=== PATIENT | female | born 1950 | race Caucasian/White ===

== ENCOUNTER → 2016-11-10 | Outpatient (CLI) | payer MEDICARE ==
--- NOTE | 2016-11-14 07:12 | MM ---
Reason for exam: screening (asymptomatic). Last mammogram was performed 7 months ago. History: Patient is postmenopausal. Physical Findings: A clinical breast exam by your physician is recommended on an annual basis and results should be correlated with mammographic findings. MG 3D Screening Mammo W/Cad Bilateral CC and MLO view(s) were taken. Prior study comparison: September 24, 2015, bilateral MG 3d screening mammo w/cad. July 25, 2013, bilateral digital screening mammo w/CAD. There are scattered fibroglandular densities. There is chronic nodularity in the right breast. No significant changes when compared with prior studies. ASSESSMENT: Negative, BI-RAD 1 RECOMMENDATION: Routine screening mammogram of both breasts in 1 year.
== END | disposition home or self-care (01) ==
LOC: RADMAMWWP 11:18
PROVIDERS: ATTEND Family Medicine
DX: Z12.31 Encounter for screening mammogram for malignant neoplasm of breast (principal)
CPT/HCPCS: 77063; G0202

== ENCOUNTER → 2017-10-09 | Outpatient (CLI) | payer MEDICARE ==
[2017-10-09 10:23] LABS: MCH 30.1 pg (25.0-35.0); MCHC 32.5 g/dL (31.0-37.0); MCV 92.5 fL (80.0-100.0); Mean Platelet Volume 7.9; Platelet Count 255 k/uL (150-450); RBC 4.65 m/uL (3.80-5.40); RDW 12.5 % (11.5-15.5); WBC 8.9 k/uL (3.8-10.6)
[2017-10-09 11:12] LABS: Albumin 4.1 g/dL (3.5-5.0); Calcium 9.7 mg/dL (8.4-10.2); Potassium 4.9 mmol/L (3.5-5.1); Total Bilirubin 0.5 mg/dL (0.2-1.3); Total Protein 7.4 g/dL (6.3-8.2)
== END | disposition home or self-care (01) ==
LOC: LABWHC1 09:51
PROVIDERS: ATTEND Physician Assistant
DX: L40.0 Psoriasis vulgaris (principal)
CPT/HCPCS: 36415; 80053; 85027

== ENCOUNTER → 2017-10-25 | Outpatient (CLI) | payer MEDICARE ==
[2017-10-25 10:02] LABS: HCT 45.1 % (34.0-46.0); HGB 14.4 gm/dL (11.4-16.0); MCH 29.5 pg (25.0-35.0); MCHC 32.1 g/dL (31.0-37.0); Mean Platelet Volume 8.1; Platelet Count 232 k/uL (150-450); RDW 12.6 % (11.5-15.5); WBC 8.4 k/uL (3.8-10.6)
[2017-10-25 10:19] LABS: Albumin 4.5 g/dL (3.5-5.0); Potassium 4.2 mmol/L (3.5-5.1); Total Bilirubin 0.7 mg/dL (0.2-1.3); Total Protein 7.6 g/dL (6.3-8.2)
== END | disposition home or self-care (01) ==
LOC: LABWHC1 09:31
PROVIDERS: ATTEND Physician Assistant
DX: L40.0 Psoriasis vulgaris (principal)
CPT/HCPCS: 36415; 80053; 85027

== ENCOUNTER → 2018-05-29 | Outpatient (CLI) | payer MEDICARE ==
--- NOTE | 2018-05-29 09:03 | CT ---
EXAMINATION TYPE: CT shoulder RT wo con DATE OF EXAM: 05/29/2018 COMPARISON: Radiograph 04/26/2017 HISTORY: 67-year-old female with right shoulder pain, Pre op planning TECHNIQUE: Contiguous axial scanning of the right shoulder without IV contrast. Coronal and sagittal reconstructions performed. 3-D reconstructions generated on a dedicated independent workstation. CT DLP: 235.8 mGycm Automated exposure control for dose reduction was used. FINDINGS: There is severe degenerative change of the right shoulder with complete loss of cartilage and joint s pace and [id number] articulation. Subchondral sclerosis. Subchondral geode measuring 7 mm in the in ferior glenoid. Prominent marginal spurring is present. There is mild loss of overall glenoid bone st ock secondary to bony remodeling with slight posterior joint subluxation and 15 degrees of glenoid re troversion. Moderate joint effusion especially with fluid extending into the subcoracoid recess. Overall rotator cuff muscle bulk is maintained. Bony irregularity at the greater tuberosity with sugg estion of some mild thinning of anterior supraspinatus tendon fibers. This could represent fraying or partial bursal sided tear. Moderate degenerative joint space narrowing with capsular hypertrophy and prominent marginal spurring at the acromioclavicular joint. The hypertrophic changes mildly impress on the underlying cuff. No acute fracture or dislocation. IMPRESSION: 1. END-STAGE RIGHT SHOULDER WITH SLIGHT POSTERIOR JOINT SUBLUXATION, MILD LOSS OF OVERALL GLENOID BON E STOCK SECONDARY TO SOME BONY REMODELING, AND 15 DEGREES OF GLENOID RETROVERSION. 2. PRESERVED ROTATOR CUFF MUSCLE VOLUME. THERE IS SOME THINNING OF THE ANTERIOR SUPRASPINATUS TENDON FIBERS THAT COULD REFLECT A PARTIAL BURSAL SIDED TEAR. 3. MODERATE JOINT EFFUSION, LIKELY REACTIVE. 4. MODERATE AC JOINT OA WITH MILD IMPINGEMENT ON THE UNDERLYING CUFF.
== END | disposition home or self-care (01) ==
LOC: RADCTMAIN 07:55
PROVIDERS: ATTEND Orthopaedic Surgery Sports Medicine
DX: Z01.818 Encounter for other preprocedural examination (principal); M19.011 Primary osteoarthritis, right shoulder; S43.001A Unspecified subluxation of right shoulder joint, initial encounter

== ENCOUNTER → 2018-06-03 | Outpatient (CLI) | payer MEDICARE ==
--- NOTE | 2018-06-03 12:36 | US ---
EXAMINATION TYPE: US carotid duplex BILAT DATE OF EXAM: 06/03/2018 COMPARISON: NONE CLINICAL HISTORY: I65.22. EXAM MEASUREMENTS: RIGHT: Peak Systolic Velocity (PSV) cm/sec ----- Right CCA: 78.4 ----- Right ICA: 72.7 ----- Right ECA: 78.3 ICA/CCA ratio: 0.9 RIGHT: End Diastole cm/sec ----- Right CCA: 24.5 ----- Right ICA: 30.2 ----- Right ECA: 16.4 LEFT: Peak Systolic Velocity (PSV) cm/sec ----- Left CCA: 79.9 ----- Left ICA: 68.3 ----- Left ECA: 82.2 ICA/CCA ratio: 0.9 LEFT: End Diastole cm/sec ----- Left CCA: 31.1 ----- Left ICA: 26.2 ----- Left ECA: 20.2 VERTEBRALS (direction of flow): Right Vertebral: Antegrade Left Vertebral: Antegrade Rhythm: Normal Mild plaque, no significant velocity elevations. IMPRESSION: Mild degree of grayscale atheromatous plaquing with no sonographically evident hemodynam ically significant stenosis within either visualized carotid arterial system. Criteria for Assigning % of Stenosis / Diameter reduction (Estimation based on the indirect measurements of the internal carotid artery velocities (ICA PSV). 1. Normal (no stenosis)=ICA PSV < 125 cm/s: ratio < 2.0: ICA EDV<40 cm/s. 2. Less than 50% stenosis=ICA PSV < 125 cm/s: ratio < 2.0: ICA EDV<40 cm/s. 3. 50 to 69% stenosis=ICA PSV of 125 to 230 cm/s: ration 2.0 ? 4.0: ICA EDV 40-100 cm/s. 4. Greater than 70% stenosis to near occlusion= ICA PSV > 230 cm/s: ratio > 4.0: ICA EDV > 100 cm/s. 5. Near occlusion= ICA PSV velocities may be low or undetectable: variable ratio and ICA EDV. 6. Total occlusion=unable to detect flow.
--- NOTE | 2018-06-03 13:02 | ECHOF ---
Referral Reason:R01.; I65.22 MEASUREMENTS -------- HEIGHT: 152.4 cm WEIGHT: 61.2 kg BP: IVSd: 0.6 cm (0.6 - 1.1) LVIDd: 3.8 cm (3.9 - 5.3) LVPWd: 1.0 cm (0.6 - 1.1) IVSs: 1.2 cm LVIDs: 2.7 cm LVPWs: 1.0 cm LA Diam: 2.6 cm (2.7 - 3.8) LAESV Index (A-L): 17.28 ml/m Ao Diam: 2.4 cm (2.0 - 3.7) AV Cusp: 1.5 cm (1.5 - 2.6) LA Diam: 3.9 cm (2.7 - 3.8) MV EXCURSION: 22.213 mm (> 18.000) MV EF SLOPE: 128 mm/s (70 - 150) EPSS: 0.4 cm MV E Bear: 0.38 m/s MV DecT: 374 ms MV A Bear: 0.79 m/s MV E/A Ratio: 0.49 RAP: 5.00 mmHg RVSP: 27.97 mmHg FINDINGS -------- Sinus rhythm. This was a technically good study. LV size, wall thickness and systolic function are normal, with an EF greater than 55%. The left sabrina tricular size is normal. The right ventricle is normal in size. The left atrial size is normal. Normal LA size by volume 22+/-6 ml/m2. The right atrial size is normal. The aortic valve is trileaflet, and appears structurally normal. No aortic stenosis or regurgitation. The mitral valve is normal. Mild mitral regurgitation is present. Mild tricuspid regurgitation present. There is no evidence of pulmonary hypertension. The right v entricular systolic pressure, as measured by Doppler, is 27.97mmHg. The pulmonic valve was not well visualized. There is no pulmonic regurgitation present. The aortic root size is normal. There is no pericardial effusion. CONCLUSIONS -------- 1. Sinus rhythm. 2. This was a technically good study. 3. LV size, wall thickness and systolic function are normal, with an EF greater than 55%. 4. The left ventricular size is normal. 5. The left atrial size is normal. 6. The aortic valve is trileaflet, and appears structurally normal. No aortic stenosis or regurgitati on. 7. Mild mitral regurgitation is present. 8. Mild tricuspid regurgitation present. 9. There is no evidence of pulmonary hypertension. 10. The pulmonic valve was not well visualized. 11. There is no pulmonic regurgitation present. 12. The aortic root size is normal. 13. There is no pericardial effusion. FASHION ARTIST: Gaby Vora RDCS
== END | disposition home or self-care (01) ==
LOC: RADECHMAIN 11:11
PROVIDERS: ATTEND Family Medicine
DX: I08.1 Rheumatic disorders of both mitral and tricuspid valves (principal); I65.22 Occlusion and stenosis of left carotid artery
CPT/HCPCS: 93306; 93880

== ENCOUNTER → 2018-06-14 | Outpatient (CLI) | payer MEDICARE ==
[2018-06-14 11:09] LABS: HGB 14.6 gm/dL (11.4-16.0); MCHC 32.5 g/dL (31.0-37.0); MCV 98.5 fL (80.0-100.0); Mean Platelet Volume 7.1; Platelet Count 272 k/uL (150-450); RBC 4.57 m/uL (3.80-5.40); RDW 14.6 % (11.5-15.5); WBC 5.8 k/uL (3.8-10.6)
[2018-06-14 16:57] LABS: Albumin 4.4 g/dL (3.80-4.90); Albumin/Globulin Ratio 1.83 (1.20-2.10); Anion Gap 7.8 mmol/L (4.00-12.00); Calcium 9.6 mg/dL (8.7-10.3); Carbon Dioxide 27.2 mmol/L (21.6-31.8); Globulin 2.4 g/dL (2.1-3.7); Potassium 4.4 mmol/L (3.5-5.5); Total Bilirubin 0.3 mg/dL (0.2-1.2); Total Protein 6.8 g/dL (6.2-8.2)
== END | disposition home or self-care (01) ==
LOC: LABWHC1 10:14
PROVIDERS: ATTEND Physician Assistant
DX: L40.0 Psoriasis vulgaris (principal)
CPT/HCPCS: 36415; 80053; 85027

== ENCOUNTER → 2018-06-14 | Outpatient (CLI) | payer MEDICARE ==
[2018-06-14 11:01] LABS: Appearance,Urine Clear (Clear); Bilirubin,Urine Negative (Negative); Blood,Urine Negative (Negative); Color,Urine Light Yellow; Glucose,Urine (UA) Negative (Negative); Ketones,Urine Negative (Negative); Leukocyte Esterase,Urine Negative (Negative); Nitrite,Urine Negative (Negative); Protein,Urine Negative (Negative); Specific Gravity,Urine 1.003 (1.001-1.035); Urobilinogen,Urine <2.0 mg/dL (<2.0)
[2018-06-14 11:08] LABS: Partial Thromboplastin Time 25.8 sec (22.0-30.0); Prothrombin Time 10.4 sec (9.0-12.0)
== END ==
LOC: LABPAT 10:10
PROVIDERS: ATTEND Orthopaedic Surgery Sports Medicine
DX: Z01.818 Encounter for other preprocedural examination (principal); Z01.812 Encounter for preprocedural laboratory examination; Z51.81 Encounter for therapeutic drug level monitoring; Z79.01 Long term (current) use of anticoagulants
CPT/HCPCS: 36415; 80053; 81003; 85027; 85610; 85730; 87070; 93005

== ENCOUNTER 2018-06-27 13:30 | Inpatient (IN) | payer MEDICARE ==
[2018-06-19 15:37] VITALS: BMI 26.4
[~2018-06-27 13:30] MED LIST: DEXAMETHASONE SOD PHOSPHATE 10 MG/ML 1 ML VIAL IV ONE; HYDROmorphone 0.5 MG/0.5 ML SYRINGE IVP PRN; LIDOCAINE 1% 20 ML VIAL (10MG/ML) FOR IV START INTRADERMA PRN; ONDANSETRON 4 MG/2 ML VIAL IVP ONE; SCOPOLAMINE 1.5MG/72HR PATCH TRANSDERM ONE
[2018-06-27] MEDS ORDERED: ACETAMINOPHEN TAB 500 MG TAB PO ONE (13:55)
[2018-06-27] MEDS ORDERED: LACTATED RINGERS 1,000 ML IV ONE ×2 (14:00→16:38)
[2018-06-27] MEDS ORDERED: TRANEXAMIC ACID 1,000 MG in SODIUM CHLORIDE 0.9% 50 ML IVPB STA ×4 (14:32)
[2018-06-27] MEDS ORDERED: ACETAMINOPHEN TAB 500 MG TAB PO STA (14:33)
[2018-06-27] MEDS ORDERED: ceFAZolin IN SWFI 2 GM/20 ML SYRINGE IVP STA (14:33)
[2018-06-27] MEDS ORDERED: MELOXICAM 7.5 MG TAB PO STA (14:33)
[2018-06-27] MEDS ORDERED: ONDANSETRON 4 MG/2 ML VIAL IVP STA (14:33)
[2018-06-27] MEDS ORDERED: MIDAZOLAM 2 MG/2 ML VIAL IVP ONE (14:38)
[2018-06-27] MEDS ORDERED: fentaNYL (PF) 50 MCG/ML 2 ML AMP IVP ONE (14:39)
[2018-06-27] MEDS ORDERED: PHENYLEPHRINE-0.9% NACL SYG 1 MG/10 ML SYRINGE ONE (15:29)
[2018-06-27] MEDS ORDERED: ePHEDrine SULFATE/0.9% NACL/PF 50 MG/5 ML SYRINGE IV ONE (15:29)
[2018-06-27] MEDS ORDERED: ROCURONIUM BROMIDE 10 MG/ML 10 ML VIAL IV ONE (15:29)
[2018-06-27] MEDS ORDERED: MIDAZOLAM 2 MG/2 ML VIAL ONE (15:29)
[2018-06-27] MEDS ORDERED: SUCCINYLCHOLINE CHLORIDE 100 MG/5 ML SYR IV ONE (15:29)
[2018-06-27] MEDS ORDERED: fentaNYL (PF) 50 MCG/ML 2 ML AMP ONE (15:29)
[2018-06-27] MEDS ORDERED: LIDOCAINE 1% INJ 10MG/ML (20 ML MDV) ONE (15:29)
[2018-06-27] MEDS ORDERED: SODIUM CHLORIDE 0.9% 100 ML BAG ONE (15:29)
[2018-06-27] MEDS ORDERED: TRANEXAMIC ACID 1,000 MG/10 ML VIAL ONE (15:29)
[2018-06-27] MEDS ORDERED: ROPIVACAINE 5 MG/ML 30 ML VIAL ONE (15:29)
[2018-06-27] MEDS ORDERED: PROPOFOL 10 MG/ML 20 ML VIAL IV ONE (15:29)
[2018-06-27] MEDS ORDERED: diphenhydrAMINE 25 MG CAP PO PRN (15:33)
[2018-06-27] MEDS ORDERED: hydrOXYzine PAMOATE 25 MG CAP PO PRN (15:33)
[2018-06-27] MEDS ORDERED: ONDANSETRON 4 MG/2 ML VIAL IVP PRN (15:33)
[2018-06-27] MEDS ORDERED: TEMAZEPAM 15 MG CAP PO PRN (15:33)
[2018-06-27] MEDS ORDERED: METOCLOPRAMIDE 5 MG/ML 2 ML VIAL IVP PRN (15:33)
[2018-06-27] MEDS ORDERED: PROCHLORPERAZINE SUPPOSITORY 25 MG SUPP RECTAL PRN (15:33)
[2018-06-27] MEDS ORDERED: HYDROmorphone 0.5 MG/0.5 ML SYRINGE IVP PRN ×3 (15:33)
[2018-06-27] MEDS ORDERED: SENNOSIDES-DOCUSATE SODIUM 1 EACH TAB PO PRN (15:33)
[2018-06-27] MEDS ORDERED: HYDROcodone/APAP 7.5-325MG 1 EACH TAB PO PRN (15:37)
[2018-06-27] MEDS ORDERED: HYDROcodone/APAP 10-325MG 1 EACH TAB PO PRN ×2 (15:37)
[2018-06-27] MEDS ORDERED: ceFAZolin 3,000 MG in SODIUM CHLORIDE 0.9% IRRIGATIO 3,000 ML IRRIGATION ONE (16:08)
[2018-06-27] MEDS ORDERED: VANCOMYCIN 1,000 MG VIAL MISCELLANE ONE (16:24)
--- NOTE | 2018-06-27 18:14 | P.ONQ ---
Anesthesiology Proc Note - PNB - Peripheral Nerve Block Performed Right Interscalene Single Time Out Performed: Yes Procedure Start Time: 14:35 Indication: Acute Post-Operative Pain, Analgesia Specifically requested for management of pain by DrKimberly: Mike Wilson Sedation Type: Sedate with meaningful contact maintained Preparation: Sterile Prep Position: Supine Catheter: None Needle Types: Other (see comment) (Pajunk) Needle Size: 50mm (2") Needle Gauge: 21 Technique: Ultrasound Injectate: 0.5% Ropivacaine (see comment for volume) (25cc) Blood Aspirated: No Pain Paresthesia on Injection Noted: No Resistance on Injection: Normal Events: Uneventful and Well Tolerated
--- NOTE | 2018-06-27 18:23 | OP ---
OPERATIVE REPORT DATE OF PROCEDURE: 06/27/2018 PREOPERATIVE DIAGNOSIS: Right shoulder osteoarthritis. POSTOPERATIVE DIAGNOSIS: Right shoulder osteoarthritis. OPERATION: 1. Right total shoulder arthroplasty. 2. Right long-head biceps tenodesis. SURGEON: Mike Wilson MD. ROOFING SUBCONTRACTOR: Ranjan Delaney PA-C. ANESTHESIA: General endotracheal. ESTIMATED BLOOD LOSS: 200 mL. DRAINS: One deep drain. COMPLICATIONS: None apparent. DISPOSITION: Post-Anesthesia Care Unit. INDICATIONS: Ms. Sanabria is a very pleasant 67-year-old female with longstanding right shoulder pain. Workup including x-rays revealed advanced osteoarthrosis of the right shoulder. At this point she feels as if she has failed conservative management and would like to proceed with operative intervention. The risks of the procedure were discussed with her in detail. These risks include but are not limited to risk of infection, nerve damage, bleeding, pain, instability in the shoulder, loosening of the implants, and a risk of deep infection. There is also a small risk of deep vein thrombosis which could lead to fatal pulmonary embolism. The patient understood the risks. All of her questions with regard to the risks of the procedure were answered to her satisfaction. Appropriate informed consent was obtained. DESCRIPTION OF THE PROCEDURE: The patient was identified in the preoperative holding area. Surgical site was marked by both the patient and myself. She was given 2 grams of Ancef IV for prophylactic purposes. She was then transferred to the operative suite. She was placed supine on the operating room table. General anesthetic was then administered and dosed per the anesthesia department without apparent complication. Examination under anesthesia of the right shoulder was then performed. She had passive elevation to 140 degrees. External rotation at the side was to 30 degrees. The patient was then placed into the beach chair position, well padded in preparation for surgery. Great care was taken to ensure that her cervical spine was in neutral alignment, well padded and maintained that way throughout the operative procedure. Great care was also taken to appropriately pad her legs as well. The patient's right upper extremity was then prepped and draped in the usual sterile fashion. Standard surgical pause was then undertaken to ensure that we were operating on the correct site and that appropriate preoperative antibiotics had been given. All staff in the room were in agreement and we proceeded. The acromion AC joint, clavicle and coracoid were marked with a surgical pen. A planned incision starting at the level of the clavicle and extending distally over the deltopectoral interval approximately 1 cm lateral to the coracoid was marked with a surgical pen. The incision was then made with a 10 blade scalpel. Dissection was carried down sharply to the deltoid fascia. The deltopectoral interval was then identified at the level of the clavicle. A small band retractor was then placed onto the proximal deltoid. I then released the deltoid fascia on the lateral aspect of the cephalic vein. The vein was left in its bed medially. The cephalic vein was protected throughout the entire case. I then identified the clavipectoral fascia. It was incised proximally at the level of the coracoacromial ligament. The coracoacromial ligament was left intact. I then used my finger to spread the interval between the conjoint tendon and the subscapularis. I felt for the axillary nerve, which was readily palpable. I then cleared the subacromial and subdeltoid spaces of bursal and scar tissue. I then utilized a Funez retractor to hold the deltoid and expose the humeral head. I then proceeded with release of the subscapularis in the anterior inferior shoulder capsule. The rotator cuff was inspected. It was found to be intact. The rotator interval was also identified. The course of the biceps tendon was also identified. I then released the biceps in the bicipital groove. I tenodesed the biceps to the surrounding soft tissue with multiple 0 Vicryl interrupted sutures. I then released the rotator interval. It was released at the base of the coracoid and then out laterally. The subscapularis and the capsule were then released intratendinously. Subscapularis and the capsule release extended distally in a lazy-S fashion approximately 1 cm medial to the biceps tendon. I then continued to release this capsule along the inferior neck in a vertical fashion to approximately the 6 o'clock position. Great care was taken to ensure that the capsule was always visualized as it was released as to avoid injuring the axillary nerve. I then brought a Cortes woodworking belt sander with the arm externally rotated and abducted. I continued to release the capsule inferomedially to the 4 o'clock position. The inferior osteophytes were now removed as well. This was done with a rongeur. I then proceeded with preparation of the humerus. I removed all the goat's yeager osteophytes. I then removed the subchondral plate from the superior aspect of the humeral head utilizing a large rongeur. I then utilized a starter reamer to gain access to the humeral canal. This was approximately 1 cm medial to the rotator cuff insertion and 1 cm posterior to the bicipital groove. I then prepared the humeral canal with hand reaming. I started with a 6 mm reamer and progressed incrementally until firm resistance was encountered at 12 mm. The reamer handle was then left in place. I then utilized a humeral resection guide set at 30 degrees of retrotorsion. The cutting block was set 1 to 2 mm above the insertion of the rotator cuff. I then proceeded to osteotomize the humeral head with an oscillating saw. I removed the resection guide and then completed the osteotomy. I then proceeded with trial stem placement. I then broached the canal starting with a 6 mm broach up to a 12 mm broach. The 12 mm trial stem was then left in place. I then proceeded with trial reduction. I started with a 38 x 19 x 39 head. This fit very nicely. The head fit opposite the glenoid. The rotator cuff was not tented. Internal rotation was to 90 degrees. Elevation was to 150 degrees and translation was one half of the head in neutral rotation and inferiorly one quarter of the head in 15 to 20 degrees of abduction. I then removed the trial head. The stem was left in place to protect the proximal humerus. I then proceeded with exposure of the glenoid. A bone hook was then used to pull the humerus out laterally. I inspected the joint for any loose bodies. The condition of the cuff was again inspected. It was in excellent condition. The Bhattman retractor was then placed onto the posterior glenoid rim. The arm was placed in approximately 80 degrees of abduction and in slight flexion on the Cortes stand. I then proceeded to remove the hypertrophic labrum to definitively identify the actual glenoid. I then selected the size of the glenoid. A medium-sized glenoid seemed to fit very nicely. I then utilized a starting drilled to make the centering hole. I then proceeded to ream the glenoid fossa. This was done with a medium-sized reamer. The reaming was then taken down to paprika signs. I took great care to do a minimal amount of reaming to maintain as much subchondral bone as possible. There was a tiny bit of posterior inferior loss, and I preferentially took slightly more anterior glenoid with the reaming. I then proceeded to place the glenoid drill holes. The peripheral drill holes were then placed and the center hole was also drilled as well. I then placed a trial size medium glenoid and it fit very nicely onto the glenoid. I then proceeded with cementing. I Waterpik'd the wound and the bone. The drill holes were packed with Ray-Renee sponges. The cement was mixed on the back table by the library clerical assistant. The drill holes were then packed with cement utilizing a 20 mL syringe. These were packed very tightly. A small amount of cement was also placed on the posterior aspect of the real glenoid component. I then impacted the real glenoid component into place. It was a Biomet medium-sized pegged glenoid component with a Regenerex central peg. Excess cement was then removed utilizing a freer elevator. Pressure was held onto the glenoid component until the cement had hardened. I then removed the Bhattman retractor. I then proceeded with humeral component trial reduction with the glenoid. The 38 x 19 x 39 head was then placed back onto the stem. Again it was taken through a trial. The head set opposite the glenoid. The rotator cuff was not tented. Elevation was to 150 degrees. Internal rotation was to 90 degrees and translation was one half of the head in neutral rotation, one quarter of the head in 15 to 20 degrees of abduction. I then had the indirect sales representative open a 38 x 19 x 39 real head and a size 12 Biomet mini stem. The stem was then impacted into the canal in 30 degrees of retrotorsion. The real head was then impacted onto the stem. The shoulder was reduced. I then proceeded with closure. Again the wound was thoroughly irrigated with sterile saline solution with antibiotic added. The rotator interval was closed tightly with interrupted 0 Vicryl sutures. The subscapularis was repaired with #2 interrupted FiberWire sutures. The axillary nerve was felt for and readily palpable. The tug-test was normal. Deep drain was then placed and brought out superiorly away from the incision. Five hundred mg of vancomycin powder was then placed deep into the wound. The deltopectoral interval was then closed with 0 Vicryl interrupted sutures. Again the wound was thoroughly irrigated with sterile saline solution with antibiotic added. The remaining 500 mg of vancomycin powder was placed subcutaneously. The subcutaneous tissue was closed with 2-0 Vicryl interrupted suture and the skin was closed with a running 3-0 Quill suture. Dermabond was applied to the incision. Sterile compressive dressing was applied. The patient's right upper extremity was placed into a shoulder immobilizer. All sponge and needle counts were deemed correct prior to closure. The patient tolerated the procedure without apparent complication. She was transferred to the recovery room in stable condition. MMMALLORY / REBECCAN: [id number] /
[2018-06-27] MEDS ORDERED: ONDANSETRON 4 MG/2 ML VIAL IVP ONE (18:25)
--- NOTE | 2018-06-27 18:36 | XR ---
EXAMINATION TYPE: XR shoulder limited RT DATE OF EXAM: 06/27/2018 COMPARISON: 04/26/2017 HISTORY: Postop TECHNIQUE: Single view FINDINGS: There is a right shoulder prosthesis. Components appear in anatomic position. IMPRESSION: No complicating process seen.
[2018-06-27] MEDS ORDERED: PROMETHAZINE INJ 25 MG/ML 1 ML VIAL IVPB ONE (18:50)
[2018-06-27 19:54] LABS: Basophils % (A) 0 %; Eosinophils % (A) 0 %; HCT 39.3 % (34.0-46.0); HGB 12.9 gm/dL (11.4-16.0); Lymphocytes % (A) 10 %; MCH 32.1 pg (25.0-35.0); MCHC 32.9 g/dL (31.0-37.0); MCV 97.4 fL (80.0-100.0); Mean Platelet Volume 8.2; Monocytes # (A) 0.2 k/uL (0-1.0); Monocytes % (A) 2 %; Neutrophils # (A) 9.3 k/uL (1.3-7.7); Neutrophils % (A) 88 %; Platelet Count 191 k/uL (150-450); RBC 4.04 m/uL (3.80-5.40); RDW 14.3 % (11.5-15.5); WBC 10.6 k/uL (3.8-10.6)
--- NOTE | 2018-06-27 20:18 | P.HPIM ---
History of Present Illness H&P Date: 06/27/18 Chief Complaint: Additional management and evaluation 67-year-old female with history of the severe degree of degenerative joint disease osteoarthritis patient is status post to the cortical right shoulder arthroplasty postop day #0 does came back from OR recovering from anesthesia complain of mild nausea however denies any pain in the shoulder her past medical history is significant for hypertension and depression Review of Systems All systems: negative Past Medical History Past Medical History: Hypertension, Osteoarthritis (OA), Skin Disorder Additional Past Medical History / Comment(s): Plaque psoriasis. History of Any Multi-Drug Resistant Organisms: None Reported Past Surgical History: Tubal Ligation Additional Past Surgical History / Comment(s): Colonoscopy. Past Anesthesia/Blood Transfusion Reactions: Postoperative Nausea & Vomiting ( PONV) Past Psychological History: No Psychological Hx Reported Smoking Status: Former smoker Past Alcohol Use History: Occasional Additional Past Alcohol Use History / Comment(s): Quit 20 yrs ago, smoked for 20 yrs, 1 PPD. Past Drug Use History: None Reported - Past Family History Father Family Medical History: Cancer Medications and Allergies Home Medications Medication Instructions Recorded Confirmed Type Amitriptyline HCl [Elavil] 50 mg PO HS 06/19/18 06/27/18 History Lisinopril 40 mg PO QAM 06/19/18 06/27/18 History Doxycycline Hyclate 100 mg PO BID #10 tab 06/27/18 Rx Allergies Allergy/AdvReac Type Severity Reaction Status Date / Time tramadol Allergy Itching Verified 06/27/18 18:23 Physical Exam Vitals: Vital Signs Temp Pulse Pulse Resp BP Pulse Ox 06/27/18 18:40 60 18 130/78 97 06/27/18 18:25 80 18 130/85 95 06/27/18 18:10 50 L 18 130/84 96 06/27/18 17:55 96.8 F L 77 16 132/67 97 06/27/18 14:08 98.5 F 86 16 134/78 98 Intake and Output 06/27/18 06/27/18 06/27/18 06:59 14:59 22:59 Intake Total 500 801 Output Total 200 Balance 500 601 Intake: IV 500 801 Output: Estimated Blood Loss 200 - Constitutional General appearance: average body habitus, cooperative, no acute distress - EENT Eyes: EOMI, PERRLA, normal appearance ENT: normal oropharynx Ears: bilateral: normal - Neck Neck: normal ROM Carotids: bilateral: upstroke normal Thyroid: bilateral: normal size - Respiratory Respiratory: bilateral: CTA - Cardiovascular Rhythm: regular Heart sounds: normal: S1, S2 - Gastrointestinal General gastrointestinal: normal bowel sounds, soft - Integumentary Right shoulder covered with dressing with a drain - Neurologic Neurologic: CNII-XII intact - Musculoskeletal Musculoskeletal: gait normal, generalized weakness, strength equal bilaterally - Psychiatric Psychiatric: A&O x's 3, appropriate affect, intact judgment & insight Results CBC & Chem 7: 06/27/18 19:14 Labs: Abnormal Lab Results - Last 24 Hours (Table) 06/27/18 Range/Units 19:14 Neutrophils # 9.3 H (1.3-7.7) k/uL Thrombosis Risk Factor Assmnt - Choose All That Apply Each Factor Represents 1 point: Obesity (BMI >25) Other Risk Factors: Yes Each Risk Factor Represents 2 Points: Age 61-74 years, Arthroscopic surgery Other congenital or acquired thrombophilia - If yes, enter type in comment: No Thrombosis Risk Factor Assessment Total Risk Factor Score: 5 Thrombosis Risk Factor Assessment Level: High Risk Assessment and Plan Assessment: Painful frozen right shoulder is status post total right shoulder arthroplasty postop day #0 Hypertension Depression Plan: Gentle rehydration Pain management DVT prophylaxis with early ambulation Occult therapy and rehab Resume home medications Deep breathing exercises incentive spirometry If nausea is persistent consider starting antibiotics like Zofran Further recommendations pending plan of care as per clinical response of the patient
[2018-06-27] MEDS ORDERED: AMITRIPTYLINE HCL 50 MG TAB PO SCH (21:00)
[2018-06-27] MEDS: DOXYCYCLINE 100 MG CAP PO SCH (22:01)
[2018-06-27] MEDS: LACTATED RINGERS 1,000 ML IV SCH ×2 (22:16→22:18)
[2018-06-28] MEDS: ceFAZolin IN SWFI 2 GM/20 ML SYRINGE IVP SCH ×2 (00:23→09:03)
[2018-06-28] MEDS: LACTATED RINGERS 1,000 ML IV SCH ×3 (00:27→08:49)
[2018-06-28] MEDS: HYDROcodone/APAP 7.5-325MG 1 EACH TAB PO PRN ×2 (03:33→09:01)
[2018-06-28 07:17] VITALS: RESP 17; TEMP 98.7
--- NOTE | 2018-06-28 08:54 | P.DS ---
Providers Date of admission: 06/27/18 13:30 Expected date of discharge: 06/28/18 Attending physician: Mike Wilson Consults: 06/27/18 15:33 Consult Physician Routine Consulting Provider: Vineet Cheng Consult Reason/Comments: post op medical management Do you want consulting provider notified?: Yes Primary care physician: Deb Ferro - Discharge Diagnosis(es) (1) Osteoarthritis of right shoulder Patient was admitted to the OR on 06/27/2018 to undergo a right total shoulder arthroplasty. She had failed conservative measures as an outpatient and desired to proceed with elective surgery after given informed consent. She underwent the above procedure which she tolerated well without complication. Postoperative hospital course has remained without complication. On day of discharge she is afebrile, vital signs stable, labs within acceptable ranges, tolerating by mouth meds and diet, voiding without difficulty, positive flatus, denies abdominal pain or calf pain, pain is controlled on oral pain medication and has no new complaints. Wound is benign, neurovascular status is intact, calf is soft and nontender, abdomen soft and nontender. Review of systems is negative for numbness, tingling, fever, chills, chest pain, shortness breath, nausea, vomiting, dizziness, headaches, slurred speech or other. Current Visit: Yes Status: Acute Priority: Medium Procedures: Right TSA Patient Condition at Discharge: Good Plan - Discharge Summary Discharge Rx Participant: Yes New Discharge Prescriptions: New Doxycycline Hyclate 100 mg PO BID #10 tab HYDROcodone/APAP 7.5-325MG [Mcgrann 7.5-325] 1 - 2 each PO Q6HR PRN #56 tab PRN Reason: Pain No Action Lisinopril 40 mg PO QAM Amitriptyline HCl [Elavil] 50 mg PO HS Discharge Medication List Amitriptyline HCl [Elavil] 50 mg PO HS 06/19/18 [History] Lisinopril 40 mg PO QAM 06/19/18 [History] Doxycycline Hyclate 100 mg PO BID #10 tab 06/27/18 [Rx] HYDROcodone/APAP 7.5-325MG [Mcgrann 7.5-325] 1 - 2 each PO Q6HR PRN #56 tab [Rx] Follow up Appointment(s)/Referral(s): Mike Wilson MD [STAFF PHYSICIAN] - 10 Days Activity/Diet/Wound Care/Special Instructions: Take meds as directed Keep wound clean and dry Maintain sling May shower in 72 hours if no bleeding F/U with Dr. Wilson in office Discharge Disposition: HOME WITH HOME HEALTH SERVICES
[2018-06-28 08:57] VITALS: BP 114/76; PULSE 92
[2018-06-28] MEDS ORDERED: LISINOPRIL 20 MG TAB PO SCH (09:00)
[2018-06-28] MEDS: DOXYCYCLINE 100 MG CAP PO SCH (09:02)
--- NOTE | 2018-06-28 16:37 | P.PN ---
Subjective Progress Note Date: 06/28/18 Principal diagnosis: Painful right frozen shoulder status post right total shoulder arthroplasty postop day #1, hypertension, depression 06/28/2018, patient seen and evaluated examined during the rounds clinically has improved significantly nausea that was noted before has been stable and improved very minimal pain is present, patient has been tolerating by mouth well undergoing physical therapy likely will be discharged later on today 67-year-old female with history of the severe degree of degenerative joint disease osteoarthritis patient is status post to the cortical right shoulder arthroplasty postop day #0 does came back from OR recovering from anesthesia complain of mild nausea however denies any pain in the shoulder her past medical history is significant for hypertension and depression Objective - Vital Signs Vital signs: Vital Signs Temp 98.7 F 06/28/18 07:00 Pulse 92 06/28/18 08:57 Resp 17 06/28/18 07:00 BP 114/76 06/28/18 08:57 Pulse Ox 95 06/28/18 07:00 Intake & Output 06/27/18 06/28/18 06/28/18 18:59 06:59 18:59 Intake Total 1301 Output Total 200 Balance 1101 Intake: IV 1301 Output: Estimated Blood Loss 200 Other: Voiding Method Toilet # Voids 1 1 - Exam - Constitutional General appearance: average body habitus, cooperative, no acute distress - EENT Eyes: EOMI, PERRLA, normal appearance ENT: normal oropharynx Ears: bilateral: normal - Neck Neck: normal ROM Carotids: bilateral: upstroke normal Thyroid: bilateral: normal size - Respiratory Respiratory: bilateral: CTA - Cardiovascular Rhythm: regular Heart sounds: normal: S1, S2 - Gastrointestinal General gastrointestinal: normal bowel sounds, soft - Integumentary Right shoulder covered with dressing with a drain - Neurologic Neurologic: CNII-XII intact - Musculoskeletal Musculoskeletal: gait normal, generalized weakness, strength equal bilaterally - Psychiatric Psychiatric: A&O x's 3, appropriate affect, intact judgment & insight - Labs CBC & Chem 7: 06/27/18 19:14 Labs: Abnormal Lab Results - Last 24 Hours (Table) 06/27/18 Range/Units 19:14 Neutrophils # 9.3 H (1.3-7.7) k/uL Assessment and Plan Assessment: Painful frozen right shoulder is status post total right shoulder arthroplasty postop day #0 Hypertension Depression Plan: Gentle rehydration Pain management DVT prophylaxis with early ambulation Occult therapy and rehab Resume home medications Deep breathing exercises incentive spirometry Agree with discharge planning follow with primary care provider in and has recommended Further recommendations pending plan of care as per clinical response of the patient Time with Patient: Greater than 30
== END 2018-06-28 13:55 | disposition home health service (06) | DRG 483 ==
LOC: 2ORMAIN 13:30 → 4SSUR 18:13
PROVIDERS: ADMIT Orthopaedic Surgery Sports Medicine; ATTEND Orthopaedic Surgery Sports Medicine
PROC: 0RRJ0JZ Replacement of Right Shoulder Joint with Synthetic Substitute, Open Approach (ICD-10-PCS; principal; 2018-06-27 15:45)
PROC: 0LS30ZZ Reposition Right Upper Arm Tendon, Open Approach (ICD-10-PCS; principal; 2018-06-27 15:45)
DX: M19.011 Primary osteoarthritis, right shoulder (principal); F32.9 Major depressive disorder, single episode, unspecified; I10 Essential (primary) hypertension; M75.01 Adhesive capsulitis of right shoulder; Z87.891 Personal history of nicotine dependence; Z79.899 Other long term (current) drug therapy; Z88.8 Allergy status to other drugs, medicaments and biological substances
CPT/HCPCS: 64415; 85025

== ENCOUNTER → 2019-06-23 | Outpatient (CLI) | payer MEDICARE ==
--- NOTE | 2019-06-23 16:40 | BD ---
EXAMINATION TYPE: Axial Bone Density DATE OF EXAM: 06/23/2019 COMPARISON: 09/24/2015 CLINICAL HISTORY: 68-year-old female postmenopausal screening Height: 59 IN Weight: 141 LBS FRAX RISK QUESTIONS: Family History (Parent hip fracture): YES MOTHER Secondary Osteoporosis: 3. Menopause before 45: AGE 45 RISK FACTORS HISTORY OF: Family History of Osteoporosis: YES GRANDMOTHER Active: YES Diet low in dairy products/other sources of calcium: YES Postmenopausal woman: AGE 45 MEDICATIONS: Osteoporosis Medications: NOT NOW Which medication: Fosamax How Long: TOOK FOR 1 YEAR Additional Medications: VIT D, MULTI VIT,LISINOPRIL, METHOTREXATE,FOLIC ACID, AMATRIPTYLINE, TYLENOL EXAM MEASUREMENTS: Bone mineral densitometry was performed using the [employer] System. Bone mineral density as measured about the Lumbar spine is: ----- L1-L4(G/cm2): 0.965 T Score Values are as follows: ----- L2: -2.2 ----- L3: -1.4 ----- L4: -1.9 ----- L1-L4: -1.8 Bone mineral density has: Decreased -0.9% since study of: 09/24/2015 Bone mineral density about the R hip (g/cm2): 0.974 Bone mineral density about the L hip (g/cm2): 0.776 T Score values are as follows: -----R Neck: -0.4 -----L Neck: -1.9 -----R Total: -2.4 -----L Total: -2.3 Bone mineral density has: Decreased -8.3% since study of: 09/24/2015 IMPRESSION: Osteopenia (T Score between -2.5 and -1). There is slightly increased risk of fracture and the patient may be considered for treatment. Re-Screen 2-5 years. NOTE: T-SCORE=SD OF THE YOUNG ADULT MEAN.
--- NOTE | 2019-06-27 12:11 | MM ---
Reason for exam: screening (asymptomatic). Last mammogram was performed 2 years and 7 months ago. History: Patient is postmenopausal. Physical Findings: A clinical breast exam by your physician is recommended on an annual basis and results should be correlated with mammographic findings. MG 3D Screening Mammo W/Cad Bilateral CC and MLO view(s) were taken. Prior study comparison: November 10, 2016, bilateral MG 3d screening mammo w/cad. April 03, 2016, right breast MG 3d diag mammo w/cad RT. There are scattered fibroglandular densities. There is no discrete abnormality. ASSESSMENT: Negative, BI-RAD 1 RECOMMENDATION: Routine screening mammogram of both breasts in 1 year.
== END | disposition home or self-care (01) ==
LOC: RADMAMWWP 11:23
PROVIDERS: ATTEND Family Medicine
DX: Z12.31 Encounter for screening mammogram for malignant neoplasm of breast (principal); Z13.820 Encounter for screening for osteoporosis; M85.80 Other specified disorders of bone density and structure, unspecified site
CPT/HCPCS: 77063; 77067; 77080

== ENCOUNTER → 2019-09-05 | Outpatient (CLI) | payer MEDICARE ==
[2019-09-05 11:15] LABS: Appearance,Urine Clear (Clear); Bilirubin,Urine Negative (Negative); Blood,Urine Negative (Negative); Color,Urine Colorless; Glucose,Urine (UA) Negative (Negative); HCT 41.1 % (34.0-46.0); HGB 13.3 gm/dL (11.4-16.0); Ketones,Urine Negative (Negative); Leukocyte Esterase,Urine Negative (Negative); MCH 31.5 pg (25.0-35.0); MCHC 32.4 g/dL (31.0-37.0); MCV 97.1 fL (80.0-100.0); Nitrite,Urine Negative (Negative); PH, Urine 7.5 (5.0-8.0); Platelet Count 272 k/uL (150-450); Protein,Urine Negative (Negative); RBC 4.23 m/uL (3.80-5.40); RDW 13.9 % (11.5-15.5); Specific Gravity,Urine 1.003 (1.001-1.035); Urobilinogen,Urine <2.0 mg/dL (<2.0); WBC 6.6 k/uL (3.8-10.6)
[2019-09-05 12:12] LABS: Partial Thromboplastin Time 24.7 sec (22.0-30.0); Prothrombin Time 9.9 sec (9.0-12.0)
[2019-09-05 12:24] LABS: Albumin 4.1 g/dL (3.5-5.0); Calcium 9.5 mg/dL (8.4-10.2); Potassium 4.5 mmol/L (3.5-5.1); Total Bilirubin 0.5 mg/dL (0.2-1.3); Total Protein 7.3 g/dL (6.3-8.2)
== END | disposition home or self-care (01) ==
LOC: LABPAT 10:27
PROVIDERS: ATTEND Orthopaedic Surgery
DX: Z01.810 Encounter for preprocedural cardiovascular examination (principal); Z01.812 Encounter for preprocedural laboratory examination; Z79.01 Long term (current) use of anticoagulants; M16.11 Unilateral primary osteoarthritis, right hip
CPT/HCPCS: 80053; 81003; 85027; 85610; 85730; 87070; 93005

== ENCOUNTER 2019-09-15 07:34 | Inpatient (IN) | payer MEDICARE ==
[2019-09-10 11:21] VITALS: BMI 27.3
[~2019-09-15 07:34] MED LIST changes: +ACETAMINOPHEN TAB 500 MG TAB PO ONE; -DEXAMETHASONE SOD PHOSPHATE 10 MG/ML 1 ML VIAL IV ONE; -LIDOCAINE 1% 20 ML VIAL (10MG/ML) FOR IV START INTRADERMA PRN; +MELOXICAM 7.5 MG TAB PO ONE; +MIDAZOLAM 2 MG/2 ML VIAL IV PRN; -ONDANSETRON 4 MG/2 ML VIAL IVP ONE; -SCOPOLAMINE 1.5MG/72HR PATCH TRANSDERM ONE; +TRANEXAMIC ACID 1,000 MG in SODIUM CHLORIDE 0.9% 100 ML IVPB ONE
[2019-09-15] MEDS: LACTATED RINGERS 1,000 ML IV SCH ×3 (08:20→20:22)
[2019-09-15] MEDS ORDERED: LIDOCAINE 1% (10MG/ML) FOR IV START INTRADERMA ONE (08:30)
[2019-09-15] MEDS ORDERED: GABAPENTIN 300 MG CAP PO STA (08:30)
[2019-09-15] MEDS ORDERED: ONDANSETRON 4 MG/2 ML VIAL IVP ONE (08:30)
[2019-09-15] MEDS ORDERED: DEXAMETHASONE SOD PHOS (MDV) 100 MG/10 ML VIAL IVP ONE (08:30)
[2019-09-15] MEDS ORDERED: LACTATED RINGERS 1,000 ML BAG IV ONE (09:22)
[2019-09-15] MEDS ORDERED: SODIUM CHLORIDE 0.9% 100 ML BAG ONE (09:22)
[2019-09-15] MEDS ORDERED: PROPOFOL 10 MG/ML 20 ML VIAL IV ONE (09:22)
[2019-09-15] MEDS ORDERED: HEPARIN SODIUM,PORCINE 10,000 UNIT/ML 1 ML VIAL ONE (09:22)
[2019-09-15] MEDS ORDERED: MIDAZOLAM 2 MG/2 ML VIAL ONE (09:22)
[2019-09-15] MEDS ORDERED: fentaNYL (PF) 50 MCG/ML 2 ML AMP ONE (09:22)
[2019-09-15] MEDS ORDERED: TRANEXAMIC ACID 1,000 MG/10 ML VIAL ONE (09:22)
[2019-09-15] MEDS ORDERED: ceFAZolin 3,000 MG in SODIUM CHLORIDE 0.9% IRRIGATIO 3,000 ML IRRIGATION ONE (09:56)
[2019-09-15] MEDS ORDERED: ROPIVACAINE 246.25 MG, EPINEPHrine 0.5 MG, KETOROLAC 30 MG, cloNIDine HCL/PF 80 MCG, WA... MISCELLANE ONE ×5 (09:58)
--- NOTE | 2019-09-15 10:28 | P.OP ---
Date of Procedure: 09/15/19 Preoperative Diagnosis: Severe osteoarthritis right hip Postoperative Diagnosis: Severe osteoarthritis right hip Procedure(s) Performed: Right total hip arthroplasty with a direct anterior approach Implants: Mata and nephew Polarstem size 4 standard Mata & Nephew R3, 3 hole acetabular shell, 48 mm Mata [employer] Nephew reflection 6.5 mm cancellus screw, 20 mm 2 Mata [employer] Nephew R3, XLPE 20 acetabular liner Mata & Nephew Oxinium femoral head 32 m, +0 All components were press-fit. The articulation is Oxinium on polyethylene. Anesthesia: spinal Surgeon: Kalin Jones Database Report Writer #1: Shirley Urena Estimated Blood Loss (ml): 200 (68 mL returned with Cell Saver) Pathology: other (Femoral head) Condition: stable Disposition: PACU Indications for Procedure: After failure of conservative treatment we discussed the surgical and nonsurgical treatment options at length. Patient wishes to proceed with a total hip arthroplasty with a direct anterior approach. Complications specific to this procedure were discussed at length, including but not limited to infection, leg length discrepancy, dislocation, and nerve injury. Patient is aware of all these complications and informed consent was obtained Operative Findings: The operative findings are consistent with severe osteoarthritis of the right hip Description of Procedure: Patient was seen and evaluated in the preoperative area, consent was reviewed, and the surgical site was marked with a skin marker. Patient was then brought to the operating room and given prophylactic antibiotics intravenously. 1 g of Tranexamic acid was also given. A spinal anesthetic was administered by the anesthesia department. The patient was then placed on the Suncook table with the bony prominences well-padded. The hip area was then prepped and draped in usual sterile fashion. A universal timeout was then performed, which confirmed the patient's name, surgical site, ALLERGIES, and procedure being performed. Next the incision site was located at 1 cm distal and 1 cm lateral to the anterior superior iliac spine. The skin and subcutaneous tissues were sharply incised. Incision was carefully dissected down to the fascia overlying the tensor fascia chasity muscle. This fascia was then incised in line with the incision. Next, using blunt finger dissection, the tensor fascia chasity muscle was dissected off its investing fascia. The muscle was then carefully retracted laterally with a cobra retractor over the lateral neck of the femur. Next, the circumflex vessels were identified and cauterized using the AquaMantis device. The anterior hip capsule was then exposed. The capsule was then opened and an inverted T fashion. Cobra retractors were then placed intracapsularly. The proximal femur was then visu alized. The femoral neck was then osteotomized appropriate level above the lesser trochanter. Small amount of traction was placed with the Suncook table. A small wedge of bone was then removed from the remaining femoral head. Next, using a corkscrew femoral head was easily removed from the acetabulum. On gross visual inspection, the femoral head had complete loss of articular cartilage in multip le periarticular osteophytes. Attention was then turned to the acetabulum. the acetabulum was exposed and any remaining labrum was excised. Sequential reaming of the acetabulum was performed using fluoroscopic guidance. When the appropriate size was reached, a trial was then placed. The position and fit of the trial was checked with fluoroscopy. The trial was then removed. Then, using fluoroscopic guidance, the final implant was impacted at 20 of anteversion and 40 of abduction, and fully seated in the acetabulum. 2 screws were then placed in the acetabulum. Again fluoroscopy was used to check position of the screws. Next, the liner was then impacted, with a 20 elevated liner located in the anterior superior quadrant. Component locking was confirmed. Attention was then directed to the femur. With the aid of the Suncook table, the femur was externally rotated to approximately 130, extended, and abducted under the opposite leg. A side hook was then placed under the proximal femur, and the side hook elevator was used to elevate the proximal femur. Retractors were then placed. A capsular release was performed, as well as a release of the conjoined tendon, which afforded excellent visualization of the proximal femur. Next, a box osteotome was used to lateralize the proximal femur. A materials handling equipment operator was then used to locate the femoral canal. Sequential broaching was then performed with appropriate size which afforded excellent fixation in the proximal femur. A trial was then placed with appropriate head and neck, and the hip was gently reduced with the aid of the Suncook table. Fluoroscopy was then used to check position of the components, as well as to ensure equal leg lengths. The hip was then gently dislocated and the trials were then removed. Final implants were then impacted and the hip was again reduced. Final fluoroscopic x-rays confirmed that the components were in anatomic position, as well as equal leg lengths. The hip was also taken through range of motion, and found to be stable. The hip was then copiously irrigated with antibiotic solution with pulsatile lavage. The hip was then irrigated with Irrisept solution. The soft tissues were then injected with a ropivacaine solution, which consisted of 246.25 mg of ropivacaine, 0.5 mg of epinephrine, 30 mg of Toradol, 80 g of clonidine, and 48.45 mL of sterile water, for a total of 100 mL of fluid injected. A second dose of 1 g of Tranexamic acid was also given. the fascia was then closed with 2-0 strata fix suture. The subcutaneous tissue was closed with 3-0 Vicryl. The subcuticular tissue was closed with 3-0 strata fix suture. The skin was then closed with Dermabond glue and a sterile silver dressing. The patient was then transferred to the recovery room in stable condition. The assistant front end manager COLLINS Singh was required due to the complexity of surgery, and the need for skilled funeral home assistant for positioning, draping, exposure, retraction, and closure of the wound.
[2019-09-15] MEDS ORDERED: HYDROmorphone 0.5 MG/0.5 ML SYRINGE IVP PRN ×3 (11:06)
[2019-09-15] MEDS ORDERED: HYDROcodone/APAP 7.5-325MG 1 EACH TAB PO PRN (11:06)
[2019-09-15] MEDS ORDERED: NALOXONE 0.4 MG/ML 1 ML VIAL IV PRN (11:06)
[2019-09-15] MEDS ORDERED: MAGNESIUM HYDROXIDE 2,400 MG/10 ML CUP PO PRN (11:06)
[2019-09-15] MEDS ORDERED: LACTATED RINGERS 1,000 ML IV ONE ×2 (11:17)
--- NOTE | 2019-09-15 11:24 | XR ---
EXAMINATION TYPE: XR Hip Limited RT DATE OF EXAM: 09/15/2019 CLINICAL HISTORY: Right hip pain and osteoarthritis. TECHNIQUE: Single AP portable view of right hip is obtained immediately postoperatively. COMPARISON: None. FINDINGS: Metallic hardware from right hip arthroplasty is seen and appears satisfactory in alignment and position. There is evidence of recent surgery with subcutaneous gas noted laterally. IMPRESSION: Metallic hardware from right hip arthroplasty is satisfactory in position.
--- NOTE | 2019-09-15 11:46 | XR ---
EXAMINATION TYPE: XR Hip Limited RT, FL guidance operating room DATE OF EXAM: 09/15/2019 CLINICAL HISTORY: Fluoroscopic guidance during right anterior hip replacement TECHNIQUE: Fluoroscopy. COMPARISON: None. FINDINGS: Fluoroscopic guidance was provided during procedure performed by Dr. Jones. A total of 39 seconds of fluoroscopic time was utilized during the procedure and 2 spot images were acquired du ring right hip replacement. IMPRESSION: As Above.
--- NOTE | 2019-09-15 14:50 | P.CONS ---
History of Present Illness - Reason for Consult Consult date: 09/15/19 Medical management Requesting physician: Kalin Jones - Chief Complaint Status post right total hip arthroplasty - History of Present Illness This is a 69-year-old female, patient of Dr. Ferro. She has a known history of hypertension, rheumatoid arthritis and osteoarthritis. She has been having right hip pain and severe osteoarthritis of the right hip. She underwent a right total hip arthroplasty with Dr. Jones. She tolerated surgery well no complications reported. Estimated blood loss of 200 mL. We've been consulted for medical management. Patient denies any chest pain or shortness of breath, nausea or vomiting, bowel movement changes or urinary symptoms. Medications have been reviewed and reconciled. Review of Systems Please refer to HPI otherwise unremarkable Past Medical History Past Medical History: Hypertension, Osteoarthritis (OA), Skin Disorder, Vascular Disorder Additional Past Medical History / Comment(s): psoriasis. PAD, varicose veins, History of Any Multi-Drug Resistant Organisms: None Reported Past Surgical History: Joint Replacement, Tubal Ligation Additional Past Surgical History / Comment(s): Colonoscopy, rt shoulder replacement, Past Anesthesia/Blood Transfusion Reactions: Postoperative Nausea & Vomiting (PONV) Smoking Status: Former smoker - Past Family History Father Family Medical History: Cancer Medications and Allergies Home Medications Medication Instructions Recorded Confirmed Type Amitriptyline HCl [Elavil] 50 mg PO HS 06/19/18 09/15/19 History Lisinopril 40 mg PO QAM 06/19/18 09/15/19 History Acetaminophen [Tylenol Arthritis] 1,300 mg PO BID 09/10/19 09/15/19 History Aspirin [Adult Low Dose Aspirin EC] 81 mg PO DAILY 09/10/19 09/15/19 History Cholecalciferol [Vitamin D3 (25 3,000 unit PO DAILY 09/10/19 09/15/19 History Mcg = 1000 Iu)] Folic Acid 0.4 mg PO DAILY 09/10/19 09/15/19 History Methotrexate [Xatmep Oral Soln] 12.5 mg PO MO 09/10/19 09/15/19 History Multivitamins, Thera [Multivitamin 1 tab PO DAILY 09/10/19 09/15/19 History (formulary)] Aspirin 325 mg PO BID #60 tab 09/15/19 Rx HYDROcodone/APAP 7.5-325MG [[place] 1 - 2 tab PO Q4-6H PRN #50 tab 09/15/19 Rx 7.5-325] Meloxicam [Mobic] 1 - 2 tab PO DAILY PRN #30 tab 09/15/19 Rx Sennosides-Docusate Sodium 1 tab PO BID #60 tablet 09/15/19 Rx [Senokot-S] Allergies Allergy/AdvReac Type Severity Reaction Status Date / Time tramadol Allergy headache Verified 09/15/19 08:10 Physical Exam Vitals: Vital Signs Temp Pulse Resp BP Pulse Ox 09/15/19 12:59 72 16 116/62 98 09/15/19 12:32 67 16 123/67 97 09/15/19 12:02 66 16 125/61 97 09/15/19 11:45 65 16 126/62 97 09/15/19 11:30 65 16 133/68 97 09/15/19 11:26 68 16 123/70 97 09/15/19 11:11 67 16 123/68 98 09/15/19 10:56 97 F L 84 16 124/67 100 09/15/19 08:11 96.7 F L 76 16 157/71 98 Intake and Output 09/14/19 09/15/19 09/15/19 22:59 06:59 14:59 Intake Total 1501 Output Total 200 Balance 1301 Intake: IV 1501 Output: Estimated Blood Loss 200 Other: Weight 64.1 kg Head normocephalic Neck supple Lungs clear to auscultation bilaterally no wheezing or crackles Heart regular rate and rhythm S1-S2, no rub or gallop Abdomen is soft nontender nondistended positive bowel sounds no hepatosplenomegaly Extremities no edema. Right hip dressing clean dry and intact no evidence of swelling Neuro alert and orientated to 3 Assessment and Plan Assessment: 1. Severe osteoarthritis of the right hip status post right total hip arthroplasty. Continue pain control per orthopedic recommendations. Continue aspirin turn 25 mg twice a day for DVT prophylaxis. PT OT on consult. 2. Essential hypertension: Blood pressure is stable. Resume patient's lisinopril 3. History of rheumatoid arthritis continue the methotrexate GI prophylaxis Pepcid and DVT prophylaxis aspirin and SCDs Thank you for this consultation. We will continue to follow along during patient's hospitalization. I'll order routine labs in the morning. Time with Patient: Greater than 30 (Greater than 50% of the total time spent in counseling and coordination of care.I performed an examination of the patient and discussed their management with the physician Manager Educational. I have reviewed the Physician Manager Educational's notes and agree with the documented findings and plan of care)
[2019-09-15] MEDS ORDERED: METHOTREXATE SODIUM 2.5 MG TAB PO SCH (15:00)
[2019-09-15] MEDS: ASPIRIN 325 MG TAB PO SCH (20:20)
[2019-09-15] MEDS: ACETAMINOPHEN TAB 325 MG TAB PO SCH (20:21)
[2019-09-15] MEDS ORDERED: SENNOSIDES-DOCUSATE SODIUM 1 EACH TAB PO SCH (21:00)
[2019-09-15] MEDS ORDERED: AMITRIPTYLINE HCL 50 MG TAB PO SCH (21:00)
[2019-09-15] MEDS: HYDROcodone/APAP 7.5-325MG 1 EACH TAB PO PRN (22:58)
[2019-09-16] MEDS ORDERED: ONDANSETRON 4 MG/2 ML VIAL IVP PRN (03:06)
[2019-09-16] MEDS: LACTATED RINGERS 1,000 ML IV SCH ×2 (04:54→07:31)
[2019-09-16] MEDS: ASPIRIN 325 MG TAB PO SCH (07:25)
[2019-09-16] MEDS: HYDROcodone/APAP 7.5-325MG 1 EACH TAB PO PRN (07:25)
[2019-09-16] MEDS: ACETAMINOPHEN TAB 325 MG TAB PO SCH (07:27)
[2019-09-16 07:29] LABS: Basophils % (A) 0 %; Eosinophils % (A) 0 %; HCT 32.3 % (34.0-46.0); HGB 10.5 gm/dL (11.4-16.0); Lymphocytes # (A) 1.7 k/uL (1.0-4.8); Lymphocytes % (A) 16 %; MCH 31.6 pg (25.0-35.0); MCHC 32.3 g/dL (31.0-37.0); MCV 97.7 fL (80.0-100.0); Monocytes # (A) 0.6 k/uL (0-1.0); Monocytes % (A) 6 %; Neutrophils % (A) 77 %; Platelet Count 197 k/uL (150-450); RBC 3.31 m/uL (3.80-5.40); WBC 10.4 k/uL (3.8-10.6)
[2019-09-16 07:38] LABS: ALT 100 U/L (4-34); AST 192 U/L (14-36); African American GFR (CKD) >90 (>60 ml/min/1.73 sqM); Albumin 3.1 g/dL (3.5-5.0); Alkaline Phosphatase 78 U/L (38-126); Anion Gap 5 mmol/L; Blood Urea Nitrogen 18 mg/dL (7-17); Calcium 8.8 mg/dL (8.4-10.2); Carbon Dioxide 28 mmol/L (22-30); Chloride 104 mmol/L (98-107); Glucose 107 mg/dL (74-99); Non-African American GFR(CKD) 79 (>60 ml/min/1.73 sqM); Potassium 4.3 mmol/L (3.5-5.1); Sodium 137 mmol/L (137-145); Total Bilirubin 0.5 mg/dL (0.2-1.3); Total Protein 5.7 g/dL (6.3-8.2)
[2019-09-16 08:58] VITALS: BP 130/66; PULSE 92; RESP 18; TEMP 98.5
[2019-09-16] MEDS ORDERED: MULTIVITAMINS, THERA 1 EACH TAB PO SCH (09:00)
[2019-09-16] MEDS ORDERED: ASPIRIN 81 MG PO SCH (09:00)
[2019-09-16] MEDS ORDERED: FAMOTIDINE 20 MG TAB PO SCH (09:00)
[2019-09-16] MEDS ORDERED: LISINOPRIL 20 MG TAB PO SCH (09:00)
[2019-09-16] MEDS ORDERED: FOLIC ACID 1 MG TAB PO SCH (09:00)
[2019-09-16] MEDS ORDERED: CHOLECALCIFEROL 1,000 UNIT TAB PO SCH (09:00)
[2019-09-16] MEDS ORDERED: MELOXICAM 7.5 MG TAB PO SCH (09:00)
--- NOTE | 2019-09-16 10:55 | P.PN ---
Subjective Progress Note Date: 09/16/19 This is a 69-year-old female, patient of Dr. Ferro. She has a known history of hypertension, rheumatoid arthritis and osteoarthritis. She has been having right hip pain and severe osteoarthritis of the right hip. She underwent a right total hip arthroplasty with Dr. Jones. She tolerated surgery well no complications reported. Estimated blood loss of 200 mL. We've been consulted for medical management. Patient denies any chest pain or shortness of breath, nausea or vomiting, bowel movement changes or urinary symptoms. Medications have been reviewed and reconciled. Objective - Vital Signs Vital signs: Vital Signs Temp 98.5 F 09/16/19 07:00 Pulse 92 09/16/19 07:00 Resp 18 09/16/19 07:00 BP 130/66 09/16/19 07:00 Pulse Ox 98 09/16/19 07:00 Intake & Output 09/15/19 09/16/19 09/16/19 18:59 06:59 18:59 Intake Total 1501 960 Output Total 200 Balance 1301 960 Weight 64.1 kg Intake: IV 1501 Oral 960 Output: Estimated Blood Loss 200 Other: Voiding Method Toilet Toilet # Voids 1 1 - Exam In general patient is alert and oriented x 3 in no distress HEENT head normocephalic and atraumatic Neck is supple no JVD no goiter no lymphadenopathy Chest exam is clear to auscultation no crackles no wheezing Cardiac exam reveals regular heart sounds S1 and S2 no gallops no murmurs Abdomen is soft nontender no organomegaly with normal bowel sounds Extremity exam reveals no edema no cyanosis or clubbing Neurological examination reveals no gross focal deficit - Labs CBC & Chem 7: 09/16/19 06:57 09/16/19 06:57 Labs: Abnormal Lab Results - Last 24 Hours (Table) 09/16/19 09/16/19 Range/Units 06:57 06:57 RBC 3.31 L (3.80-5.40) m/uL Hgb 10.5 L (11.4-16.0) gm/dL Hct 32.3 L (34.0-46.0) % Neutrophils # 8.0 H (1.3-7.7) k/uL BUN 18 H (7-17) mg/dL Glucose 107 H (74-99) mg/dL AST 192 H (14-36) U/L ALT 100 H (4-34) U/L Total Protein 5.7 L (6.3-8.2) g/dL Albumin 3.1 L (3.5-5.0) g/dL Assessment and Plan Plan: 1. Severe osteoarthritis of the right hip status post right total hip arthroplasty. Continue pain control per orthopedic recommendations. Continue aspirin turn 25 mg twice a day for DVT prophylaxis. PT OT on consult. 2. Essential hypertension: Blood pressure is stable. Resume patient's lisinopril 3. History of rheumatoid arthritis continue the methotrexate. 4. Elevated liver enzymes, AST today 192, ALT 100 previous blood test done on 09/05/2019 revealed normal liver enzymes this could be related to reaction to acetaminophen or redness Tesio medications patient counseled to avoid acetaminophen "Tylenol", and avoid alcohol intake, follow-up with her primary care physician Dr. Ferro in 2-3 days for recheck on liver enzymes. Patient instructed to return to the hospital if having any symptoms of abdominal pain nausea vomiting or jaundice. GI prophylaxis Pepcid and DVT prophylaxis aspirin and SCDs
--- NOTE | 2019-09-17 14:25 | P.DS ---
Providers Date of admission: 09/15/19 07:34 Expected date of discharge: 09/16/19 Attending physician: Kalin Jones Consults: 09/15/19 11:06 Consult Physician Routine Consulting Provider: Vineet Cheng Consult Reason/Comments: Medical management Do you want consulting provider notified?: Yes Primary care physician: Deb Ferro - Discharge Diagnosis(es) (1) Osteoarthritis of right hip Status: Acute (2) Status post total hip replacement, right Status: Acute Hospital Course: This is a 69 year old female who presented to our office for evaluation of right hip pain. She has a known history of Degenerative arthritis of the right hip and has failed outpatient conservative treatment and presented to discuss surgical options. After discussion and consideration the patient elects to proceed with total right hip arthroplasty, anterior approach. the patient was seen preoperatively by her primary care physician and cleared for surgery. The patient presented to the hospital on 09/15/2019 for total right hip arthroplasty, anterior approach. The procedure is performed without complication or sequelae. The patient is doing well on postop day #1 and cleared for discharge home. Patient Condition at Discharge: Good Plan - Discharge Summary Discharge Rx Participant: Yes New Discharge Prescriptions: New Aspirin 325 mg PO BID #60 tab Meloxicam [Mobic] 1 - 2 tab PO DAILY PRN #30 tab PRN Reason: Pain Sennosides-Docusate Sodium [Senokot-S] 1 tab PO BID #60 tablet traMADol HCL [Ultram] 50 mg PO Q6HR PRN #28 tab PRN Reason: Pain No Action Lisinopril 40 mg PO QAM Amitriptyline HCl [Elavil] 50 mg PO HS Folic Acid 0.4 mg PO DAILY Aspirin [Adult Low Dose Aspirin EC] 81 mg PO DAILY Multivitamins, Thera [Multivitamin (formulary)] 1 tab PO DAILY Cholecalciferol [Vitamin D3 (25 Mcg = 1000 Iu)] 3,000 unit PO DAILY Methotrexate [Xatmep Oral Soln] 12.5 mg PO MO Acetaminophen [Tylenol Arthritis] 1,300 mg PO BID Discharge Medication List Amitriptyline HCl [Elavil] 50 mg PO HS 06/19/18 [History] Lisinopril 40 mg PO QAM 06/19/18 [History] Acetaminophen [Tylenol Arthritis] 1,300 mg PO BID 09/10/19 [History] Aspirin [Adult Low Dose Aspirin EC] 81 mg PO DAILY 09/10/19 [History] Cholecalciferol [Vitamin D3 (25 Mcg = 1000 Iu)] 3,000 unit PO DAILY 09/10/19 [History] Folic Acid 0.4 mg PO DAILY 09/10/19 [History] Methotrexate [Xatmep Oral Soln] 12.5 mg PO MO 09/10/19 [History] Multivitamins, Thera [Multivitamin (formulary)] 1 tab PO DAILY 09/10/19 [History] Aspirin 325 mg PO BID #60 tab 09/15/19 [Rx] Meloxicam [Mobic] 1 - 2 tab PO DAILY PRN #30 tab 09/15/19 [Rx] Sennosides-Docusate Sodium [Senokot-S] 1 tab PO BID #60 tablet 09/15/19 [Rx] traMADol HCL [Ultram] 50 mg PO Q6HR PRN #28 tab 09/16/19 [Rx] Follow up Appointment(s)/Referral(s): Deb Ferro MD [Primary Care Provider] - 09/23/19 1:00 pm [facility], [NON-STAFF] - Kalin Jones DO [Doctor of Osteopathic Medicine] - 10/01/19 4:00 pm Patient Instructions/Handouts: Pain Management After Surgery (DC), Anterior Hip Replacement (DC) Activity/Diet/Wound Care/Special Instructions: May bear wt as tolerated w walker. Leave Optifoam dressing intact 10 days. May shower 48h post op. Discharge Disposition: HOME WITH HOME HEALTH SERVICES
== END 2019-09-16 11:49 | disposition home health service (06) | DRG 470 ==
LOC: 2ORMAIN 07:34 → 4SSUR 13:16
PROVIDERS: ADMIT Orthopaedic Surgery; ATTEND Orthopaedic Surgery
PROC: 0SR906A Replacement of Right Hip Joint with Oxidized Zirconium on Polyethylene Synthetic Substitute, Uncemented, Open Approach (ICD-10-PCS; principal; 2019-09-15 09:05)
DX: M16.11 Unilateral primary osteoarthritis, right hip (principal); Z96.611 Presence of right artificial shoulder joint; I10 Essential (primary) hypertension; M06.9 Rheumatoid arthritis, unspecified; M91.11 Juvenile osteochondrosis of head of femur [Legg-Calve-Perthes], right leg; Z98.51 Tubal ligation status; Z98.890 Other specified postprocedural states; Z87.891 Personal history of nicotine dependence; Z79.82 Long term (current) use of aspirin; Z80.9 Family history of malignant neoplasm, unspecified; Z88.5 Allergy status to narcotic agent; Z97.3 Presence of spectacles and contact lenses; Z82.49 Family history of ischemic heart disease and other diseases of the circulatory system
CPT/HCPCS: 73501; 80053; 85025; 86850; 86891; 86900; 86901; 88300

== ENCOUNTER → 2020-05-18 | Outpatient (CLI) | payer MEDICARE ==
[2020-05-18 11:35] LABS: HCT 44.5 % (34.0-46.0); HGB 14.2 gm/dL (11.4-16.0); MCH 31.4 pg (25.0-35.0); MCHC 31.9 g/dL (31.0-37.0); MCV 98.6 fL (80.0-100.0); Macrocytosis Slight; Mean Platelet Volume 7.3; Platelet Count 253 k/uL (150-450); RBC 4.51 m/uL (3.80-5.40); RDW 14.8 % (11.5-15.5); WBC 9.7 k/uL (3.8-10.6)
[2020-05-18 15:00] LABS: African American GFR (CKD) 53.4 (60.0-200.0); Albumin 4.3 g/dL (3.80-4.90); Albumin/Globulin Ratio 1.72 (1.60-3.17); Anion Gap 8.3 mmol/L (4.00-12.00); BUN/Creat Ratio 15.83 Ratio (12.00-20.00); Calcium 9.6 mg/dL (8.7-10.3); Carbon Dioxide 29.7 mmol/L (21.6-31.8); Globulin 2.5 g/dL (1.6-3.3); Non-African American GFR(CKD) 46.1 (60.0-200.0); Potassium 4.8 mmol/L (3.5-5.5); Total Bilirubin 0.4 mg/dL (0.3-1.2); Total Protein 6.8 g/dL (6.2-8.2)
== END | disposition home or self-care (01) ==
LOC: LABWHC1 09:32
PROVIDERS: ATTEND Physician Assistant
DX: L40.0 Psoriasis vulgaris (principal)
CPT/HCPCS: 36415; 80053; 85027

== ENCOUNTER → 2020-07-22 | Outpatient (CLI) | payer MEDICARE ==
[2020-07-22 11:14] LABS: HCT 42.5 % (34.0-46.0); MCH 32.6 pg (25.0-35.0); MCV 98.7 fL (80.0-100.0); Mean Platelet Volume 7.6; Platelet Count 247 k/uL (150-450); RBC 4.31 m/uL (3.80-5.40); RDW 13.9 % (11.5-15.5)
[2020-07-22 16:42] LABS: African American GFR (CKD) 66.1 (60.0-200.0); Albumin 4.6 g/dL (3.80-4.90); Albumin/Globulin Ratio 2.09 (1.60-3.17); Anion Gap 9.9 mmol/L (4.00-12.00); Calcium 9.8 mg/dL (8.7-10.3); Carbon Dioxide 28.1 mmol/L (21.6-31.8); Globulin 2.2 g/dL (1.6-3.3); Potassium 4.2 mmol/L (3.5-5.5); Total Bilirubin 0.8 mg/dL (0.2-1.2); Total Protein 6.8 g/dL (6.2-8.2)
== END | disposition home or self-care (01) ==
LOC: LABWHC1 10:32
PROVIDERS: ATTEND Physician Assistant
DX: L40.0 Psoriasis vulgaris (principal)
CPT/HCPCS: 36415; 80053; 85027

== ENCOUNTER → 2020-10-25 | Outpatient (CLI) | payer MEDICARE ==
[2020-10-25 15:00] LABS: African American GFR (CKD) 66.1 (60.0-200.0); Albumin 4.2 g/dL (3.80-4.90); Albumin/Globulin Ratio 1.83 (1.60-3.17); Calcium 9.8 mg/dL (8.7-10.3); Globulin 2.3 g/dL (1.6-3.3); Potassium 4.8 mmol/L (3.5-5.5); Total Bilirubin 0.4 mg/dL (0.2-1.2); Total Protein 6.5 g/dL (6.2-8.2)
[2020-10-25 15:25] LABS: HCT 43.8 % (37.2-46.3); HGB 13.9 g/dL (12.0-15.0); MCH 30.5 pg (27.0-32.0); MCHC 31.7 g/dL (32.0-37.0); MCV 96.1 fL (80.0-97.0); Mean Platelet Volume 10.8 fL (9.5-12.2); Platelet Count 247 X 10*3/uL (140-440); RBC 4.56 X 10*6/uL (4.10-5.20); RDW 14.2 % (11.5-14.5); WBC 7.69 X 10*3/uL (4.50-10.00)
== END | disposition home or self-care (01) ==
LOC: LABWHC1 09:26
PROVIDERS: ATTEND Physician Assistant
DX: L40.0 Psoriasis vulgaris (principal)
CPT/HCPCS: 36415; 80053; 85027

== ENCOUNTER → 2020-11-18 | Outpatient (CLI) | payer MEDICARE ==
[2020-11-18 16:20] LABS: Basophils # (A) 0.05 X 10*3/uL (0.00-0.10); Basophils % (A) 0.6 %; Eosinophils # (A) 0.11 X 10*3/uL (0.04-0.35); Eosinophils % (A) 1.3 %; HCT 42.1 % (37.2-46.3); HGB 13.5 g/dL (12.0-15.0); Lymphocytes # (A) 1.85 X 10*3/uL (0.90-5.00); Lymphocytes % (A) 21.6 %; MCH 30.5 pg (27.0-32.0); MCHC 32.1 g/dL (32.0-37.0); Mean Platelet Volume 10.8 fL (9.5-12.2); Monocytes # (A) 0.71 X 10*3/uL (0.20-1.00); Monocytes % (A) 8.3 %; Neutrophils # (A) 5.81 X 10*3/uL (1.80-7.70); Neutrophils % (A) 67.8 %; Platelet Count 249 X 10*3/uL (140-440); RBC 4.43 X 10*6/uL (4.10-5.20); RDW 14.8 % (11.5-14.5); WBC 8.56 X 10*3/uL (4.50-10.00)
[2020-11-18 19:11] LABS: African American GFR (CKD) 75.1 (60.0-200.0); Albumin 4.1 g/dL (3.80-4.90); Albumin/Globulin Ratio 1.58 (1.60-3.17); Anion Gap 8.4 mmol/L (4.00-12.00); BUN/Creat Ratio 36.67 Ratio (12.00-20.00); Calcium 9.4 mg/dL (8.7-10.3); Carbon Dioxide 25.6 mmol/L (21.6-31.8); Globulin 2.6 g/dL (1.6-3.3); Non-African American GFR(CKD) 64.8 (60.0-200.0); Potassium 4.8 mmol/L (3.5-5.5); Total Bilirubin 0.6 mg/dL (0.2-1.2); Total Protein 6.7 g/dL (6.2-8.2)
[2020-11-18 22:09] LABS: Hepatitis A Antibody IgM Non-Reactive (Non-Reactive); Hepatitis B Core IgM Non-Reactive (Non-Reactive); Hepatitis B Surface Antigen Non-Reactive (Non-Reactive); Hepatitis C IgG Antibody Non-Reactive (Non-Reactive)
== END | disposition home or self-care (01) ==
LOC: LABWHC1 10:12
PROVIDERS: ATTEND Physician Assistant
DX: L40.0 Psoriasis vulgaris (principal); Z79.899 Other long term (current) drug therapy
CPT/HCPCS: 36415; 80053; 80074; 85025; 86480

== ENCOUNTER → 2021-02-18 | Outpatient (CLI) | payer MEDICARE ==
[2021-02-18 18:33] LABS: HCT 41.2 % (37.2-46.3); HGB 13.2 g/dL (12.0-15.0); MCH 31.5 pg (27.0-32.0); MCV 98.3 fL (80.0-97.0); Mean Platelet Volume 10.3 fL (9.5-12.2); Platelet Count 272 X 10*3/uL (140-440); RBC 4.19 X 10*6/uL (4.10-5.20); RDW 14.7 % (11.5-14.5); WBC 7.15 X 10*3/uL (4.50-10.00)
[2021-02-18 19:23] LABS: African American GFR (CKD) 66.1 (60.0-200.0); Albumin 4.2 g/dL (3.80-4.90); Albumin/Globulin Ratio 1.62 (1.60-3.17); Anion Gap 5.5 mmol/L (4.00-12.00); Carbon Dioxide 27.5 mmol/L (21.6-31.8); Globulin 2.6 g/dL (1.6-3.3); Potassium 4.3 mmol/L (3.5-5.5); Total Bilirubin 0.6 mg/dL (0.2-1.2); Total Protein 6.8 g/dL (6.2-8.2)
== END | disposition home or self-care (01) ==
LOC: LABWHC1 11:26
PROVIDERS: ATTEND Physician Assistant
DX: L40.0 Psoriasis vulgaris (principal)
CPT/HCPCS: 36415; 80053; 85027

== ENCOUNTER → 2021-05-13 | Outpatient (CLI) | payer MEDICARE ==
[2021-05-13 20:02] LABS: HCT 43.7 % (37.2-46.3); HGB 13.9 g/dL (12.0-15.0); MCH 30.7 pg (27.0-32.0); MCHC 31.8 g/dL (32.0-37.0); MCV 96.5 fL (80.0-97.0); Mean Platelet Volume 10.9 fL (9.5-12.2); Platelet Count 232 X 10*3/uL (140-440); RBC 4.53 X 10*6/uL (4.10-5.20); RDW 13.1 % (11.5-14.5); WBC 8.35 X 10*3/uL (4.50-10.00)
[2021-05-13 21:41] LABS: African American GFR (CKD) 66.8 (60.0-200.0); Albumin 4.5 g/dL (3.8-4.9); Albumin/Globulin Ratio 1.57 (1.60-3.17); Anion Gap 13.7 mmol/L (4.00-12.00); BUN/Creat Ratio 18.85 Ratio (12.00-20.00); Blood Urea Nitrogen 18.7 mg/dL (9.0-27.0); Calcium 9.8 mg/dL (8.7-10.3); Carbon Dioxide 24.3 mmol/L (21.6-31.8); Globulin 2.9 g/dL (1.6-3.3); Non-African American GFR(CKD) 57.6 (60.0-200.0); Potassium 4.4 mmol/L (3.5-5.5); Total Bilirubin 0.4 mg/dL (0.30-1.20); Total Protein 7.4 g/dL (6.2-8.2)
== END | disposition home or self-care (01) ==
LOC: LABWHC1 10:37
PROVIDERS: ATTEND Physician Assistant
DX: L40.0 Psoriasis vulgaris (principal)
CPT/HCPCS: 36415; 80053; 85027

== ENCOUNTER → 2021-06-16 | Outpatient (CLI) | payer MEDICARE ==
[~2021-06-16] MED LIST changes: -ACETAMINOPHEN TAB 500 MG TAB PO ONE; +DOBUTamine DRIP for NUC MED 500 MG in DEXTROSE/WATER 1 250ML.BAG IV PRN; -HYDROmorphone 0.5 MG/0.5 ML SYRINGE IVP PRN; -MELOXICAM 7.5 MG TAB PO ONE; -MIDAZOLAM 2 MG/2 ML VIAL IV PRN; -TRANEXAMIC ACID 1,000 MG in SODIUM CHLORIDE 0.9% 100 ML IVPB ONE
--- NOTE | 2021-06-16 15:06 | ECHOS ---
STRESS ECHOCARDIOGRAM INDICATIONS: Preoperative cardiac evaluation. BASELINE HEART RATE: 87 BASELINE BLOOD PRESSURE: MAXIMUM HEART RATE: 128 MAXIMUM BLOOD PRESSURE: 152/95 85% MPHR: 128 100% MPHR: 150 METS: NA MAXIMUM STAGE REACHED: 5 TOTAL EXERCISE TIME: 15:55 CLINICAL INFORMATION: Baseline EKG shows sinus rhythm, normal axis, normal intervals. Patient was given intravenous dobutamine over a period of 12 minutes as per protocol and was also given 0.5 mg of atropine, achieving 85% of predicted maximal heart rate. Patient did not have chest pain or diagnostic ST-segment depression. Baseline echo shows normal left ventricular size, wall motion and systolic function. Post dobutamine infusion there is normal hyperdynamic response of all segments of myocardium noted. CONCLUSIONS: 1. Negative stress test by EKG criteria. 2. Negative contrast dobutamine stress echo. MMODL / IJN: [id number] /
== END | disposition home or self-care (01) ==
LOC: RADNMMAIN 08:22
PROVIDERS: ATTEND Internal Medicine Interventional Cardiology
DX: Z01.810 Encounter for preprocedural cardiovascular examination (principal)
CPT/HCPCS: C8930; Q9950; 93351

== ENCOUNTER → 2021-11-01 | Outpatient (CLI) | payer MEDICARE ==
--- NOTE | 2021-11-01 11:42 | BD ---
EXAMINATION TYPE: Axial Bone Density DATE OF EXAM: 11/01/2021 COMPARISON: Prior DEXA study June 23, 2019 CLINICAL HISTORY: 71 year old Female. ICD-10 CODE: M85.88 DISORDER OF BONE DENSITY Height: 59 Weight: 144.8 FRAX RISK QUESTIONS: Alcohol (3 or more units per day): no Family History (Parent hip fracture): no Glucocorticoids (More than 3mos): no (Ex: prednisone, prednisolone, methylprednisolone, dexamethasone, and hydrocortisone). History of Fracture in Adulthood: no Secondary Osteoporosis: 1. Type 1 Diabetes: no 2. Hyperthyroidism: no 3. Menopause before 45: yes 4. Malnutrition: no 5. Chronic liver disease: no Rheumatoid Arthritis: no Current Tobacco Use: no RISK FACTORS HISTORY OF: Surgery to Spine/Hip(right/left)/Wrist (right/left): Right Hip When: 2020 Family History of Osteoporosis: yes Active: yes Diet low in dairy products/other sources of calcium: yes Postmenopausal woman: yes Lost more than 2 inches in height since high school: yes MEDICATIONS: Additional History: EXAM MEASUREMENTS: Bone mineral densitometry was performed using the [employer] System. Bone mineral density as measured about the Lumbar spine is: ----- L1-L4(G/cm2): 0.922 T Score Values are as follows: ----- L1: -1.6 ----- L2: -2.2 ----- L3: -2.2 ----- L4: -2.6 ----- L1-L4: -2.1 Bone mineral density has: decreased -6.6 since study 06.23.2019 Bone mineral density about the L hip (g/cm2): 0.721 T Score values are as follows: -----L Neck: -2.3 -----L Total: -2.3 Bone mineral density has: decreased -0.4% since study of: 06.23.2019 FRAX%s: The graph provided illustrates a 21.9%chance for a major osteoporotic fx and a 8.2%chance for the hips probability for fx in 10 years time. IMPRESSION: Osteopenia (T Score between -2.5 and -1) remains present. There remains slightly increased risk of fracture and the patient may be considered for treatment. Re-Screen 2-5 years. NOTE: T-SCORE=SD OF THE YOUNG ADULT MEAN.
--- NOTE | 2021-11-02 11:42 | MM ---
Reason for exam: screening (asymptomatic). Last mammogram was performed 2 years and 4 months ago. History: Patient is postmenopausal. Physical Findings: A clinical breast exam by your physician is recommended on an annual basis and results should be correlated with mammographic findings. MG 3D Screening Mammo W/Cad Bilateral CC and MLO view(s) were taken. Prior study comparison: June 23, 2019, bilateral MG 3d screening mammo w/cad. November 10, 2016, bilateral MG 3d screening mammo w/cad. There are scattered fibroglandular densities. There is no discrete abnormality. No significant changes when compared with prior studies. ASSESSMENT: Negative, BI-RAD 1 RECOMMENDATION: Routine screening mammogram of both breasts in 1 year.
== END | disposition home or self-care (01) ==
LOC: RADMAMWWP 10:10
PROVIDERS: ATTEND Family Medicine
DX: Z12.31 Encounter for screening mammogram for malignant neoplasm of breast (principal); M85.89 Other specified disorders of bone density and structure, multiple sites; Z78.0 Asymptomatic menopausal state
CPT/HCPCS: 77063; 77067; 77080

== ENCOUNTER → 2021-11-04 | Outpatient (CLI) | payer MEDICARE | END | disposition home or self-care (01) | LOC: LABWHC1 09:03 | PROVIDERS: ATTEND Physician Assistant | DX: Z79.899 Other long term (current) drug therapy (principal) | CPT/HCPCS: 36415; 86480 ==

== ENCOUNTER → 2022-11-16 | Outpatient (CLI) | payer MEDICARE | END | disposition home or self-care (01) | LOC: LABWHC1 10:22 | PROVIDERS: ATTEND Physician Assistant | DX: L40.0 Psoriasis vulgaris (principal); D22.9 Melanocytic nevi, unspecified; Z79.899 Other long term (current) drug therapy | CPT/HCPCS: 36415; 86480 ==

== ENCOUNTER → 2022-11-16 | Outpatient (CLI) | payer MEDICARE ==
--- NOTE | 2022-11-17 06:56 | MM ---
Reason for Exam: Screening (asymptomatic). Last screening mammogram was performed 12 month(s) ago. Patient History: Menarche at age 12. First Full-Term at age 18. Postmenopausal. Risk Values: Monica 5 year model risk: 1.3%. NCI Lifetime model risk: 3.3%. Prior Study Comparison: 11/10/2016 Bilateral Screening Mammogram, [facility]. 06/23/2019 Bilateral Screening Mammogram, [facility]. 11/01/2021 Bilateral Screening Mammogram, [facility]. Tissue Density: There are scattered fibroglandular densities. Findings: Analyzed By CAD. There is no suspicious group of microcalcifications or new suspicious mass in either breast. Overall Assessment: Negative, BI-RAD 1 Management: Screening Mammogram of both breasts in 1 year. . Patient should continue monthly self-breast exams. A clinical breast exam by your physician is recommended on an annual basis. This exam should not preclude additional follow-up of suspicious palpable abnormalities. Note on Monica scores and lifetime risk: 1. A Monica score greater than 3% is considered moderate risk. If this is the case, consider specialist referral to assess eligibility for a risk reducing agent. 2. If overall lifetime risk for the development of breast cancer is 20% or higher, the patient may qualify for future screening with alternating mammogram and breast MRI. Electronically signed and approved by: Alcides Sandoval M.D.
== END | disposition home or self-care (01) ==
LOC: RADMAMWWP 12:19
PROVIDERS: ATTEND Family Medicine
DX: Z12.31 Encounter for screening mammogram for malignant neoplasm of breast (principal); Z78.0 Asymptomatic menopausal state
CPT/HCPCS: 77063; 77067

== ENCOUNTER → 2023-11-19 | Outpatient (CLI) | payer MEDICARE ==
--- NOTE | 2023-11-19 12:49 | MM ---
Reason for Exam: Screening (asymptomatic). Last screening mammogram was performed 12 month(s) ago. Patient History: Menarche at age 12. First Full-Term at age 18. Postmenopausal. Risk Values: Monica 5 year model risk: 1.3%. NCI Lifetime model risk: 3.1%. Prior Study Comparison: 09/24/2015 Bilateral Screening Mammogram, [facility]. 09/30/2015 Right Diagnostic Mammogram, [facility]. 04/03/2016 Right Diagnostic Mammogram, [facility]. 11/10/2016 Bilateral Screening Mammogram, [facility]. 06/23/2019 Bilateral Screening Mammogram, [facility]. 11/01/2021 Bilateral Screening Mammogram, [facility]. 11/16/2022 Bilateral MG 3D screening mammo w/cad, [facility]. Tissue Density: There are scattered areas of fibroglandular density. Findings: Analyzed By CAD. Right breast: There is no suspicious group of microcalcifications or new suspicious mass. Left breast: There is no suspicious group of microcalcifications or new suspicious mass. Overall Assessment: Negative, BI-RAD 1 Management: Screening Mammogram of both breasts in [address] [facility] will attempt to contact patient to return for supplemental views and ultrasound if indicated. Patient should continue monthly self-breast exams. A clinical breast exam by your physician is recommended on an annual basis. This exam should not preclude additional follow-up of suspicious palpable abnormalities. Note on Monica scores and lifetime risk: 1. A Monica score greater than 3% is considered moderate risk. If this is the case, consider specialist referral to assess eligibility for a risk reducing agent. 2. If overall lifetime risk for the development of breast cancer is 20% or higher, the patient may qualify for future screening with alternating mammogram and breast MRI. Electronically signed and approved by: Medardo Lambert DO
== END | disposition home or self-care (01) ==
LOC: RADMAMWWP 09:53
PROVIDERS: ATTEND Family Medicine
DX: Z12.31 Encounter for screening mammogram for malignant neoplasm of breast (principal); Z78.0 Asymptomatic menopausal state
CPT/HCPCS: 77063; 77067

== ENCOUNTER → 2023-11-19 | Outpatient (CLI) | payer MEDICARE | END | disposition home or self-care (01) | LOC: LABWHC1 10:29 | PROVIDERS: ATTEND Nurse Practitioner Family | DX: L40.0 Psoriasis vulgaris (principal); Z79.899 Other long term (current) drug therapy | CPT/HCPCS: 36415; 86480 ==

== ENCOUNTER → 2024-11-18 | Outpatient (CLI) | payer MEDICARE | END | disposition home or self-care (01) | LOC: LABWHC1 09:59 | PROVIDERS: ATTEND Physician Assistant | DX: L40.0 Psoriasis vulgaris (principal); Z79.899 Other long term (current) drug therapy | CPT/HCPCS: 36415; 86480 ==

== ENCOUNTER → 2024-12-10 | Outpatient (CLI) | payer MEDICARE ==
--- NOTE | 2024-12-10 15:33 | BD ---
EXAMINATION TYPE: Axial Bone Density DATE OF EXAM: 12/10/2024 CLINICAL HISTORY: 74 years old Female. ICD-10 CODE: Z78.0 ASYMPTOMATIC MENOPAUSAL STA , Additional H istory: Height: 59 Weight: 143.5 FRAX RISK QUESTIONS: Alcohol (3 or more units per day): no Family History (Parent hip fracture): mother Glucocorticoids (More than 3mos): no (Ex: prednisone, prednisolone, methylprednisolone, dexamethasone, and hydrocortisone). History of Fracture in Adulthood: no Secondary Osteoporosis: 1. Type 1 Diabetes: no 2. Hyperthyroidism: no 3. Menopause before 45: yes 4. Malnutrition: no 5. Chronic liver disease: no Rheumatoid Arthritis: yes Current Tobacco Use: no RISK FACTORS HISTORY OF: Hip Fracture (Right/Left): no Spine Fracture: no History of Wrist Fracture: no Surgery to Spine/Hip(right/left)/Wrist (right/left): Rt hip replacement 2021 MEDICATIONS: Thyroid Medications: no Osteoporosis Medications: no EXAM MEASUREMENTS: Bone mineral densitometry was performed using the [employer] System. Bone mineral density as measured about the Lumbar spine is: ----- L1-L4(G/cm2): 0.914 T Score Values are as follows: ----- L1: -1.9 ----- L2: -2.0 ----- L3: -2.1 ----- L4: -2.9 ----- L1-L4: -2.2 Z Score Values are as follows: ----- L1: -0.1 ----- L2: -0.3 ----- L3: -0.4 ----- L4: -1.2 ----- L1-L4: -0.5 Bone mineral density has: decreased -0.9 % since study of: 11/01/2021 Bone mineral density about the R hip (g/cm2): 0.697 T Score values are as follows: -----L Neck: -1.9 -----L Total: -2.5 Z Score values are as follows: -----L Neck: -0.1 -----L Total: -0.8 Bone mineral density has: decreased -2.5 % since study of: 11/01/2021 FRAX%s: The graph provided illustrates a 21.5% chance for a major osteoporotic fx and a 11.5% chance for the hips probability for fx in 10 years time. IMPRESSION: Osteopenia (T Score between -2.5 and -1). There is slightly increased risk of fracture and the patient may be considered for treatment. Re-Screen 2-5 years. NOTE: T-SCORE=SD OF THE YOUNG ADULT MEAN. [facility], , 12/10/2024 3:30 PM
--- NOTE | 2024-12-10 15:36 | MM ---
Reason for Exam: Screening (asymptomatic). Last mammogram was performed 1 year(s) and 1 month(s) ago. Patient History: Menarche at age 12. First Full-Term at age 18. Postmenopausal. Risk Values: Monica 5 year model risk: 1.3%. NCI Lifetime model risk: 3.0%. Prior Study Comparison: 11/01/2021 Bilateral Screening Mammogram, [facility]. 11/16/2022 Bilateral MG 3D screening mammo w/cad, [facility]. 11/19/2023 Bilateral MG 3D screening mammo w/cad, [facility]. Tissue Density: There are scattered areas of fibroglandular density. Findings: Analyzed By CAD. There is no suspicious group of microcalcifications or new suspicious mass in either breast. Overall Assessment: Negative, BI-RAD 1 Management: Screening Mammogram of both breasts in 1 year. . Patient should continue monthly self-breast exams. A clinical breast exam by your physician is recommended on an annual basis. This exam should not preclude additional follow-up of suspicious palpable abnormalities. Note on Monica scores and lifetime risk: 1. A Monica score greater than 3% is considered moderate risk. If this is the case, consider specialist referral to assess eligibility for a risk reducing agent. 2. If overall lifetime risk for the development of breast cancer is 20% or higher, the patient may qualify for future screening with alternating mammogram and breast MRI. [facility], , 12/10/2024 3:33 PM. Electronically signed and approved by: Alcides Sandoval M.D.
== END | disposition home or self-care (01) ==
LOC: RADMAMWWP 14:45
PROVIDERS: ATTEND Family Medicine
DX: Z12.31 Encounter for screening mammogram for malignant neoplasm of breast (principal); M85.89 Other specified disorders of bone density and structure, multiple sites; R92.323 Mammographic fibroglandular density, bilateral breasts; Z78.0 Asymptomatic menopausal state
CPT/HCPCS: 77063; 77067; 77080